=== PATIENT | male | born 1950 | race Hispanic/Latino ===

== ENCOUNTER 2019-12-24 08:30 | Day surgery (SDC) | payer OTHER, MEDICARE ==
[2019-12-22 15:43] LABS: BASOPHILS % (AUTO) 0.8 % (0.0-5.0); EOSINOPHILS % (AUTO) 6.4 % (0.0-8.0); HEMATOCRIT 42.7 % (42-54); LYMPHOCYTES % (AUTO) 30.7 % (21.0-51.0); MEAN CORPUSCULAR HGB CONC 34.2 g/dL (32.0-36.0); MEAN CORPUSCULAR VOLUME 90.7 fL (79-99); MONOCYTES % (AUTO) 8.1 % (3.0-13.0); NEUTROPHILS % (AUTO) 53.6 % (40.0-77.0); PLATELET COUNT (AUTO) 216 K/uL (130-400); RED BLOOD CELL COUNT(AUTO) 4.71 MIL/uL (4.50-6.20); RED CELL DISTRIBUTION WIDTH 13.4 % (11.0-15.5); WHITE BLOOD COUNT (AUTO) 7.8 K/uL (4.8-10.8)
[2019-12-22 15:54] LABS: CREATININE 1.1 mg/dL (0.5-1.5)
[2019-12-22 15:56] VITALS: BP 159/64
[~2019-12-24] VITALS: Ht 165.1 cm; Wt 79.7 kg
[2019-12-24] VITALS (15 sets, daily range): BP systolic 119–150; BP diastolic 68–78
[~2019-12-24 08:30] MED LIST: CEFAZOLIN SODIUM 1 GM VIAL IVP SCH
[2019-12-24] MEDS ORDERED: SODIUM CHLORIDE 0.9% 1000ML 1,000 ML IV ONE (10:00)
[2019-12-24] MEDS ORDERED: MELO-106 PO (10:04)
[2019-12-24] MEDS ORDERED: METO100T14 PO (10:04)
[2019-12-24] MEDS ORDERED: ERGO2000 PO (10:04)
[2019-12-24] MEDS ORDERED: IBUP-2784 PO (10:04)
[2019-12-24] MEDS ORDERED: ICOS1CAP PO (10:04)
[2019-12-24] MEDS ORDERED: AMLO5TAB9 PO (10:04)
[2019-12-24] MEDS ORDERED: EZET10TA48 PO (10:04)
[2019-12-24] MEDS ORDERED: OMEP20CA12 PO (10:04)
[2019-12-24] MEDS ORDERED: METF-444 PO (10:04)
[2019-12-24] MEDS ORDERED: LIDOCAINE HCL 1% 20 ML VIAL ONE (10:10)
[2019-12-24] MEDS ORDERED: BUPIVACAINE/PF 0.25% 30ML VIAL IJ ONE (10:10)
[2019-12-24] MEDS ORDERED: BACITRACIN 28.4 GM OINT TP ONE (10:10)
[2019-12-24] MEDS ORDERED: LIDOCAINE PF 2% 5ML ABBOJECT ONE (11:47)
[2019-12-24] MEDS ORDERED: PROPOFOL 10 MG/ML 20ML VIAL IV ONE ×2 (11:47→12:15)
[2019-12-24] MEDS ORDERED: FENTANYL CITRATE PF 50 MCG/1 ML 2ML VIAL ONE (11:47)
[2019-12-24] MEDS ORDERED: MIDAZOLAM HCL 1 MG/ML 2ML VIAL ONE (11:59)
[2019-12-24] MEDS ORDERED: EPHEDRINE SULFATE 50 MG/ML AMPULE ONE (12:29)
[2019-12-24] MEDS ORDERED: MEPERIDINE-PF 25 MG/ML SYG ONE ×2 (12:59→13:13)
--- NOTE | 2019-12-24 13:55 | NUR ---
PATIENT ARRIVED TO DAY PATIENT VIA STRETCHER BY JONA AGUIRRE. PATIENT [id number], RESPIRATIONS UNLABORED, VITAL SIGNS STABLE. DENIES ANY PAIN AT THIS TIME. DRESSING (COBAND) TO PENIS,NO DRAINAGE OR BLEEDING NOTED.
--- NOTE | 2019-12-24 14:30 | NUR ---
PATIENT DISCHARGED FROM FACILITY VIA WHEELCHAIR AND ASSISTED INTO PRIVATE VEHICLE DRIVEN BY FAMILY MEMBER
== END 2019-12-24 14:30 | disposition home or self-care (01) ==
LOC: DAH 08:30
PROVIDERS: ATTEND Urology
DX: N47.1 Phimosis (principal); I10 Essential (primary) hypertension; E11.9 Type 2 diabetes mellitus without complications; K21.9 Gastro-esophageal reflux disease without esophagitis; Z79.899 Other long term (current) drug therapy; Z79.84 Long term (current) use of oral hypoglycemic drugs; Z87.891 Personal history of nicotine dependence
CPT/HCPCS: 36415; 54161; 80048; 82948 ×2; 85025; 93005; A4213; A4215; A4221; A4222; A4223; A4510; A4600; A4663; A6260; J0690; J2001; J2175 ×2; J2704 ×2; J3010; J3490 ×2; J7030 ×2; J2250